=== PATIENT | female | born 1970 | race African-American/Black ===

== ENCOUNTER 2021-04-05 10:52 | Outpatient (CLI) | payer OTHER, SELFPAY ==
--- NOTE | ~2021-04-05 | MM_ITS ---
EXAMINATION: MM screening adalberto BI w steve HISTORY: Screening TECHNIQUE: Craniocaudal and mediolateral oblique 3-D tomosynthesis images were obtained and synthetic 2-D images were generated. CAD analysis was submitted and interpreted. COMPARISON: No prior mammogram is available for comparison at this institution. BREAST PARENCHYMAL COMPOSITION: There are scattered areas of fibroglandular density. FINDINGS: There is a focal asymmetry in the upper central aspect of the right breast, middle third. T here is no mammographic evidence for malignancy in the left breast. IMPRESSION: 1. Focal right breast asymmetry. 2. Additional mammographic views and possible breast ultrasound are recommended. BI-RADS Category 0: Incomplete: Needs additional imaging evaluation. Reviewed, dictated and finalized at location A. IMPRESSION: 1. Focal right breast asymmetry. 2. Additional mammographic views and possible breast ultrasound are recommended . BI-RADS Category 0: Incomplete: Needs additional imaging evaluation.
== END 2021-04-05 10:53 | disposition home or self-care (01) ==
PROVIDERS: PCP Nurse Practitioner Family; Visit Provider Obstetrics & Gynecology
DX: Z12.31 Encounter for screening mammogram for malignant neoplasm of breast (principal); R92.8 Other abnormal and inconclusive findings on diagnostic imaging of breast
CPT/HCPCS: 77063; 77067

== ENCOUNTER → 2021-05-07 09:22 | Outpatient (CLI) | payer OTHER, SELFPAY ==
--- NOTE | ~2021-05-07 | MMUS_ITS ---
EXAMINATION: MM diagnostic adalberto RT w steve, US breast RT limited HISTORY: Focal right breast asymmetry in upper central aspect of right breast, middle third, reported on 04/05/2021 screening mammogram TECHNIQUE: Additional 3-D tomosynthesis images of the right breast were performed and synthetic 2-D i mages were generated. Rolled medial and rolled lateral craniocaudal views of right breast. CAD analys is was submitted and interpreted. High resolution targeted right breast ultrasound was performed. COMPARISON: 04/05/2021 bilateral screening mammogram FINDINGS: MAMMOGRAPHIC FINDINGS: There is an irregular approximately 7 mm opacity in the central right breast, slightly lateral to the mid sagittal plane, approximately 8 cm deep to the nipple on craniocaudal view. ULTRASOUND: 7:00 6 cm from nipple: There is a hypoechoic mildly irregular approximately 3.3 x 6.7 x 4.7 mm lesion with some posterior shadowing, corresponding approximately to the area of the mammographic abnormali ty. Ultrasound-guided biopsy is recommended. IMPRESSION: 1. Hypoechoic mildly irregular solid lesion at 7:00 6 cm from nipple, with some posterior shadowing 2. Ultrasound-guided biopsy is recommended. BI-RADS category 4, suspicious findings. Dr. Walker telephoned the report and ultrasound-guided biopsy recommendation on 05/07/2021 at [address] Pozo's voicemail. Reviewed, dictated and finalized at location A. [employer]PER IMPRESSION: 1. Hypoechoic mildly irregular solid lesion at 7:00 6 cm from nipple, with some posterior shadowing 2. Ultrasound-guided biopsy is recommended. BI-RADS category 4, suspicious findings. Dr. Walker telephoned the report and ultrasound-guided biopsy recommendation on 07/07/[address] Pzoo's voicemail. IMPRESSION: 1. Hypoechoic mildly irregular solid lesion at 7:00 6 cm from nipple, with some posterior shadowing 2. Ultrasound-guided biopsy is recommended. BI-RADS category 4, suspicious findings. Dr. Walker telephoned the report and ultrasound-guided biopsy recommendation on 07/07/[address] Pozo's voicemail.
== END ==
PROVIDERS: PCP Nurse Practitioner Family; Visit Provider Obstetrics & Gynecology
DX: R92.8 Other abnormal and inconclusive findings on diagnostic imaging of breast (principal)
CPT/HCPCS: 76642; 77061; 77065; G0279

== ENCOUNTER 2023-01-05 12:19 | Observation (INO) | payer BC, SELFPAY ==
[2023-01-05] VITALS (25 sets, daily range): BP systolic 165–230; BP diastolic 78–156; PULSE 52–89; RESP 14–28; TEMP 36.2–36.5; O2SAT 93–100; BMI 43.2
--- NOTE | ~2023-01-05 | XR_ITS ---
EXAMINATION: XR chest 2V DATE: 01/05/2023 14:14 INDICATION: Right shoulder and back pain. Fall. TECHNIQUE: Frontal and lateral views of the chest were obtained. COMPARISON: None. FINDINGS: There is no pneumonia, pleural effusion, or pneumothorax. The heart size is normal. IMPRESSION: 1. No acute cardiopulmonary disease. Reviewed, dictated and finalized at location E.
--- NOTE | ~2023-01-05 | XR_ITS ---
EXAMINATION: XR shoulder RT min 2V DATE: 01/05/2023 14:14 INDICATION: Right shoulder pain. TECHNIQUE: 4 views of right shoulder were obtained. COMPARISON: None. FINDINGS: Bone alignment is normal. No fracture. There is mild osteoarthritis of acromioclavicular rashi int and glenohumeral joint. IMPRESSION: 1. Mild polyarticular osteoarthritis. Reviewed, dictated and finalized at location E.
--- NOTE | 2023-01-05 13:51 | ED.FALL ---
HPI - Fall General Chief Complaint: Fall Stated Complaint: FALL BACK PAIN Time Seen by Provider: 01/05/23 13:13 History of Present Illness HPI Narrative: 52-year-old female presented the emergency department for evaluation for right shoulder and back pain after having a ground-level fall. Patient reports on Monday she was in the kitchen cooking when she stepped backwards and tripped over a new dog. Patient states she attempted to catch herself but missed to the table ended up landing on her right shoulder. Patient denies striking her head denies loss of consciousness. Patient states she was having some increased right-sided pain over the last few days and has been taking ibuprofen for pain control. Patient reports that she does still have some decreased range of motion of the right shoulder. Patient has been taking ibuprofen and Flexeril for pain control without significant improvement. Patient denies any associated abdominal or hip pain on the right side, although she did have some pain after the fall she states that pain has resolved. Related Data Home Medications Medication Instructions Recorded Confirmed levothyroxine 25 mcg capsule 25 mcg PO DAILY 03/18/21 01/05/23 cyclobenzaprine 10 mg tablet 10 mg PO TID 01/05/23 01/05/23 hydrocodone 5 mg-acetaminophen 325 1 tablet PO Q12H PRN Pain 01/05/23 01/05/23 mg tablet losartan 25 mg tablet 25 mg PO HS 01/05/23 01/05/23 Allergies Allergy/AdvReac Type Severity Reaction Status Date / Time No Known Allergies Allergy Verified 01/05/23 12:20 Review of Systems Review of Systems: All systems reviewed & are unremarkable except as noted in HPI and below PMFSH Past Medical History Medical History Hypertension Migraine Thyroid disease Surgical History Surgical History H/O tubal ligation History of section History of cryosurgery Family History Family History Father Diabetes mellitus Heart disease Mother Hypertension Heart disease Social History Social History Smoking status: Never smoker Second hand tobacco smoke exposure: No Alcohol intake: current Drinks per week: 1 Substance use type: does not use Lack of Transportation: No Lack of Food: Never True Current Housing: I Have Housing Concerned About Future Housing: No Difficulty Paying Gas/Electric Bills: No Difficulty Paying for Meds: No Currently Unemployed: No Education: Trade/Vocational Certificate Difficulty w/ Childcare or Family Care: No Spiritual care concerns: No Exam Narrative: APPEARANCE: Well appearing, no pain, no distress, well-nourished. HEAD: normocephalic, atraumatic. EYES: PERRLA/EOMI, conjunctivae clear. NOSE: Normal no drainage NECK: Supple. No adenopathy, no masses. RESPIRATORY: Airway patent, respirations nonlabored. Clear to auscultation bilaterally, no rales, rhonchi, wheezing. CARDIOVASCULAR: Regular rate and rhythm without murmurs rubs or gallops. ABDOMINAL: Soft, nontender, nondistended, normal bowel sounds MUSCULOSKELETAL: Tenderness to right scapula and to right shoulder. Some decreased range of motion of the right shoulder but no deformity or evidence of dislocation. NEURO: Alert. Cranial nerves II through XII intact. Grossly intact SKIN: Warm, dry. Normal Color Course Course Emergency Course: 52-year-old female initially presented to the ED for evaluation of right shoulder pain. Patient was profoundly hypertensive during her entire stay in the emergency department. Patient states she does have history of hypertension and takes 20 mg of p.o. losartan. Patient reports she takes her medication at nighttime. Patient was treated with her p.o. dose of losartan but had no improvement in her blood pressure. Patient
[2023-01-05] MEDS: KETOROLAC 30 MG/ML VIAL (*BKC) IM (13:56)
[2023-01-05] MEDS: CYCLOBENZAPRINE HCL 10 MG TABLET PO (13:56)
[2023-01-05] MEDS: LOSARTAN POTASSIUM 25 MG TABLET PO (15:53)
[2023-01-05] MEDS: hydrALAZINE HCL 20 MG/ML VIAL 10 MG IV PUSH (17:28)
[2023-01-05] MEDS: METOPROLOL TARTRATE INJ 5 MG/5 ML VIAL IV PUSH (18:09)
--- NOTE | 2023-01-05 19:33 | PC.NURSE ---
Pt went to the bathroom, before pt aware of needing to give a urine sample. Shauna and RN informed pt of sample needed.
--- NOTE | 2023-01-05 19:57 | PC.NURSE ---
Called russet repairer for help on labs. Talked to Lydia about it and she should be here to help shortly.
[2023-01-05 20:05] LABS: Basophils Absolute Auto 0.1 K/mm3 (0.0-0.1); Basophils Percent Auto 0.9 % (0.2-1.2); Eosinophils Absolute Auto 0.1 K/mm3 (0-0.3); Eosinophils Percent Auto 1.9 % (0-4.4); Hematocrit 37.8 % (37.0-47.0); Hemoglobin 12.2 g/dL (12.0-15.0); Immature Granulocyte Absolute 0.02 K/mm3 (0.00-0.031); Immature Granulocyte Percent A 0.3 % (0-0.5); Lymphocytes Absolute Auto 3.04 K/mm3 (0.9-3.2); Lymphocytes Percent Auto 52.9 % (18.3-44.2); Mean Corpuscular HGB Conc 32.3 g/dl (32-36); Mean Corpuscular Hemoglobin 26.9 pg (26-34); Mean Corpuscular Volume 83.4 fl (80-100); Mean Platelet Volume 8.5 fl (7.4-10.4); Monocytes Absolute Auto 0.5 K/mm3 (0.1-0.6); Platelet Count Result 362 k/mm3 (150-375); Red Blood Count 4.53 M/mm3 (4.2-5.4); Red Cell Distribution Width 13.6 % (11.5-14.5); White Blood Count 5.8 K/mm3 (4.5-10.0)
--- NOTE | 2023-01-05 20:08 | PM.IMHP ---
H&P: HPI History of Present Illness Date/Time: 01/05/23 20:08 Chief Complaint: Fall Narrative: This is a 52-year-old female with past medical history significant for hypertension, hypothyroidism, migraine headache. Patient comes to the emergency room after having a mechanical fall when in the emergency room she was noted to have a blood pressure systolic of 200's and was decided to keep the patient for observation. Patient's has been having headaches and blurry vision, denies any chest pain, palpitations, shortness of breath, lightheadedness, vertigo. Patient was given multiple drugs with attempt to bring her blood pressure further down systolic came down to 180. Preliminary workup was low yield. Review of Systems Review of Systems: Fall, blurry vision, headaches. Constitutional: Constitutional: Denies chills, Denies fatigue, Denies fever(s), Denies frequent falls, Reports headache(s), Denies malaise and Denies weakness Eyes: Eyes: Reports blurry vision ENT: Denies vertigo and Denies dizziness Cardiovascular: Cardiovascular: Denies chest pain, Denies leg edema, Denies lightheadedness, Denies radiating jaw, neck or arm pain and Denies palpitations Respiratory: Respiratory: Denies chest congestion, Denies cough, Denies excessive phlegm production and Denies dyspnea Gastrointestinal: Gastrointestinal: Denies abdominal pain, Denies dyspepsia, Denies heartburn, Denies diarrhea, Denies nausea and Denies vomiting Genitourinary: Genitourinary: Denies dysuria Musculoskeletal: Musculoskeletal: Reports arthralgias (Shoulder) Integumentary/Breasts: Skin/Breast: Denies rash Neurologic: Denies focal weakness and Denies Sensory deficit (Neuro) Psychiatric: Psychiatric: Reports no additional psychiatric complaints and Reports as per HPI Endocrine: Endocrine: Denies cold intolerance, Denies flushing, Denies heat intolerance, Denies polyphagia, Denies polydipsia and Denies palpitations Hematologic/Lymphatic: Hematologic/Lymphatic: Reports no additional hematologic/lymphatic complaints and Reports as per HPI Allergic/Immunologic: Allergic/Immunologic: Reports no additional allergic/immunologic complaints and Reports as per HPI PMFSH Past Medical History Medical History Hypertension Migraine Thyroid disease Surgical History Surgical History H/O tubal ligation History of section History of cryosurgery Family History Family History Father Diabetes mellitus Heart disease Mother Hypertension Heart disease Social History Social History Smoking status: Never smoker Second hand tobacco smoke exposure: No Alcohol intake: current Drinks per week: 1 Substance use type: does not use Lack of Transportation: No Lack of Food: Never True Current Housing: I Have Housing Concerned About Future Housing: No Difficulty Paying Gas/Electric Bills: No Difficulty Paying for Meds: No Currently Unemployed: No Education: Trade/Vocational Certificate Difficulty w/ Childcare or Family Care: No Spiritual care concerns: No Meds Home Medications and Allergies Home Medications Medication Instructions Recorded Confirmed Type levothyroxine 25 mcg capsule 25 mcg PO DAILY 03/18/21 01/05/23 History cyclobenzaprine 10 mg tablet 10 mg PO TID 01/05/23 01/05/23 History hydrocodone 5 mg-acetaminophen 325 1 tablet PO Q12H PRN Pain 01/05/23 01/05/23 History mg tablet losartan 25 mg tablet 25 mg PO HS 01/05/23 01/05/23 History Allergies Allergy/AdvReac Type Severity Reaction Status Date / Time No Known Allergies Allergy Verified 01/05/23 12:20 Vital Signs Vital Signs - 24 hr 01/05/23 12:24 01/05/23 12:33 01/05/23 14:29 Temperature 97.2 F L 97.4 F L Pulse Rate 72
[2023-01-05 20:15] LABS: Alanine Aminotransferase 25 U/L (6-35); Albumin Level 4.4 g/dL (3.5-5.1); Alkaline Phosphatase 80 U/L (38-126); Anion Gap 8 mmol/L (8-16); Aspartate Amino Transferase 29 U/L (14-36); Bilirubin,Total 0.4 mg/dL (0.2-1.3); Blood Urea Nitrogen 11 mg/dL (7-17); Calcium 9.6 mg/dL (8.4-10.2); Carbon Dioxide 28 mmol/L (22-30); Chloride 101 mmol/L (98-107); Estimated CRCL calculation 69 ml/min; Estimated Glomerular Filt Rate > 60; Glucose 152 mg/dL (65-110); Potassium 3.1 mmol/L (3.4-5.0); Sodium 137 mmol/L (137-145)
[2023-01-05 20:16] LABS: Partial Thromboplastin Time 23.5 SECONDS (22.3-36.8); Prothrombin Time 13.7 Seconds (11.1-14.7)
--- NOTE | 2023-01-05 21:22 | PC.NURSE ---
This RN attempted to call report. Diana from IMU stated nurse was in with a confused pt and would call this RN back
--- NOTE | 2023-01-05 21:49 | ADMGEN ---
This patient, Bhakti Moe, was admitted to IMU Room 200-01 at 2145. Patient/family oriented to hospital policies and general routines including ID bracelet, bed and alarms, visiting hours, pain management, procedures, bathroom and other care routines, personal items, smoking policy, room service/diet, and visiting hours. Information on how to activate the Rapid Response Team has been discussed. Patient/Family are encouraged to report perceived risks to care and to ask questions if they do not understand what they are told or what they should do.
[2023-01-06] VITALS (10 sets, daily range): BP systolic 151–173; BP diastolic 78–90; PULSE 62–102; RESP 16–19; TEMP 36–36.5; O2SAT 99–100
[2023-01-06 09:09] LABS: Basophils Percent Auto 0.4 % (0.2-1.2); Eosinophils Absolute Auto 0.1 K/mm3 (0-0.3); Eosinophils Percent Auto 1.4 % (0-4.4); Hematocrit 39.1 % (37.0-47.0); Hemoglobin 12.6 g/dL (12.0-15.0); Immature Granulocyte Absolute 0.01 K/mm3 (0.00-0.031); Immature Granulocyte Percent A 0.2 % (0-0.5); Immature Platelet Fraction Pct 1.7 % (0.9-11.2); Lymphocytes Absolute Auto 1.53 K/mm3 (0.9-3.2); Lymphocytes Percent Auto 29.7 % (18.3-44.2); Mean Corpuscular HGB Conc 32.2 g/dl (32-36); Mean Corpuscular Hemoglobin 27.3 pg (26-34); Mean Corpuscular Volume 84.8 fl (80-100); Mean Platelet Volume 9.5 fl (7.4-10.4); Monocytes Absolute Auto 0.3 K/mm3 (0.1-0.6); Neutrophils Absolute Auto 3.2 K/mm3 (1.3-6.7); Neutrophils Percent Auto 62.3 % (45.5-73.1); Platelet Count Result 407 k/mm3 (150-375); Red Blood Count 4.61 M/mm3 (4.2-5.4); White Blood Count 5.2 K/mm3 (4.5-10.0)
[2023-01-06] MEDS: ACETAMINOPHEN 500 MG TABLET PO (09:15)
[2023-01-06] MEDS: CYCLOBENZAPRINE HCL 10 MG TABLET PO ×2 (09:15→12:24)
[2023-01-06] MEDS: LEVOTHYROXINE SODIUM 25 MCG TABLET PO (09:15)
--- NOTE | 2023-01-06 09:40 | PM.IMPN ---
Progress Note: A&P Assessment and Plan (1) Hypertensive urgency: Code(s): I16.0 - Hypertensive urgency Status: Acute Assessment and Plan: Continue to monitor blood pressure, goal of 160/100 to prevent relative hypoperfusion Restarted home losartan Hydralazine as needed (2) Fall: Code(s): W19.XXXA - Unspecified fall, initial encounter Status: Acute Assessment and Plan: Ground level mechanical fall No injuries (3) Morbid obesity with BMI of 40.0-44.9, adult: Code(s): E66.01 - Morbid (severe) obesity due to excess calories; Z68.41 - Body mass index [BMI] 40.0-44.9, adult Status: Acute Assessment and Plan: Lifestyle and diet modifications Plan DVT prophylaxis with SCDs GI prophylaxis not indicated Code status full code Subjective Date/time seen: 01/06/23 09:40 Interval history: 52-year-old female with history of morbid obesity, hypothyroidism and migraines presenting after a ground level mechanical fall and currently being treated for hypertensive urgency. No overnight events noted. No chest pain or shortness of breath. No nausea, vomiting or diarrhea. No fevers or chills. Review of Systems Review of Systems: 12 point review of systems was assessed and was negative except as noted in the HPI Exam Narrative: General: No acute distress, alert and oriented per baseline HEENT: Atraumatic, normocephalic, mucous membranes moist CV: Regular rate and rhythm, S1, S2 Lungs: Clear to auscultation bilaterally, no rales or crackles noted, no wheezes, good air entry Abdomen: Soft, nontender, nondistended Extremities: Normal to inspection Skin: No rashes noted, no lesions or wounds seen Psych: Euthymic, normal affect Objective Data Vital Signs Vital Signs: Vital Signs - 24 hr 01/05/23 12:24 01/05/23 12:33 01/05/23 14:29 Temperature 97.2 F L 97.4 F L Pulse Rate 72 72 64 Respiratory Rate 16 18 20 Blood Pressure 221/125 H 193/131 H 179/83 H Pulse Oximetry 100 100 100 Oxygen Delivery Room Air 01/05/23 15:43 01/05/23 12:46 01/05/23 13:01 Temperature Pulse Rate 78 72 Respiratory Rate 16 27 H Blood Pressure 230/100 H 193/131 H 198/118 H Pulse Oximetry 100 100 Oxygen Delivery 01/05/23 14:28 01/05/23 14:31 01/05/23 14:46 Temperature Pulse Rate 67 62 78 Respiratory Rate 14 20 18 Blood Pressure 179/83 H 197/93 H 186/95 H Pulse Oximetry 93 100 100 Oxygen Delivery 01/05/23 15:17 01/05/23 16:45 01/05/23 16:46 Temperature Pulse Rate 58 L 54 L 52 L Respiratory Rate 26 H 15 18 Blood Pressure 195/91 H 211/99 H Pulse Oximetry Oxygen Delivery 01/05/23 18:09 01/05/23 17:29 01/05/23 17:31 Temperature Pulse Rate 70 59 L 55 L Respiratory Rate 20 19 Blood Pressure 224/138 H 213/119 H Pulse Oximetry Oxygen Delivery 01/05/23 17:41 01/05/23 17:51 01/05/23 18:21 Temperature Pulse Rate 56 L 61 85 Respiratory Rate 20 17 26 H Blood Pressure 218/123 H 196/156 H 165/90 H Pulse Oximetry Oxygen Delivery 01/05/23 18:31 01/05/23 18:41 01/05/23 19:00 Temperature Pulse Rate 83 89 81 Respiratory Rate 22 H 28 H 25 H Blood Pressure 169/78 H 194/95 H 184/97 H Pulse Oximetry Oxygen Delivery 01/05/23 19:02 01/05/23 19:11 01/05/23 21:45 Temperature 97.7 F Pulse Rate 84 81 66 Respiratory Rate 18 20 20 Blood Pressure 185/108 H 170/80 H 210/103 H Pulse Oximetry 98 Oxygen Delivery 01/05/23 22:00 01/06/23 00:09 01/06/23 00:00 Temperature 97.7 F Pulse Rate 80 85 Respiratory Rate 19 Blood Pressure 154/78 H Pulse Oximetry 99 100 Oxygen Delivery Room Air 01/06/23 00:00 01/06/23 02:00 01/06/23 05:06 Temperature 97.7 F Pulse Rate 93 78 67 Respiratory Rate 18 Blood Pressure 151/89 H Pulse Oximetry 99 Oxygen Delivery 01/06/23 04:00 01/06/23 04:00 01/06/23 06:00 Temperature Pulse Rate 102 H 82 Respiratory Rate Blood Pr
[2023-01-06 09:53] LABS: Alanine Aminotransferase 25 U/L (6-35); Albumin Level 4.4 g/dL (3.5-5.1); Alkaline Phosphatase 78 U/L (38-126); Anion Gap 7 mmol/L (8-16); Aspartate Amino Transferase 31 U/L (14-36); Bilirubin,Total 0.4 mg/dL (0.2-1.3); Blood Urea Nitrogen 14 mg/dL (7-17); Calcium 9.5 mg/dL (8.4-10.2); Carbon Dioxide 31 mmol/L (22-30); Chloride 101 mmol/L (98-107); Estimated CRCL calculation 66 ml/min; Estimated Glomerular Filt Rate > 60; Glucose 113 mg/dL (65-110); Potassium 3.8 mmol/L (3.4-5.0); Sodium 139 mmol/L (137-145)
[2023-01-06] MEDS: POTASSIUM CHLORIDE INJ 40 MEQ in SODIUM CHLORIDE 0.9% IV 500 ML 130 MEQ IVPB (10:42)
[2023-01-06] MEDS: POTASSIUM CHLORIDE 20 MEQ ER TABLET 40 MEQ PO ×2 (10:42→14:52)
[2023-01-06 12:21] LABS: Cholesterol 245 mg/dL (0-200); HDL Direct 44 mg/dL; Triglycerides 92 mg/dL (<150)
[2023-01-06 12:29] LABS: Hemoglobin A1C 6.2 % (<5.7)
[2023-01-06 12:32] LABS: LDL Cholesterol Direct 145 mg/dL
--- NOTE | 2023-01-06 14:35 | PM.DS ---
DS: Admitting Diagnosis Discharge Date 01/06/23 Admitting Diagnosis s/p fall DS: Discharge Diagnosis Discharge Diagnosis (1) Hypertensive urgency: Code(s): I16.0 - Hypertensive urgency Status: Acute Assessment and Plan: Continue to monitor blood pressure, goal of 160/100 to prevent relative hypoperfusion Restarted home losartan Hydralazine as needed (2) Fall: Code(s): W19.XXXA - Unspecified fall, initial encounter Status: Acute Assessment and Plan: Ground level mechanical fall No injuries (3) Morbid obesity with BMI of 40.0-44.9, adult: Code(s): E66.01 - Morbid (severe) obesity due to excess calories; Z68.41 - Body mass index [BMI] 40.0-44.9, adult Status: Acute Assessment and Plan: Lifestyle and diet modifications check a1c, lipid panel (4) Hypothyroidism: Code(s): E03.9 - Hypothyroidism, unspecified Status: Acute Assessment and Plan: check tsh, wnl, cont home dose levothyroxine Plan DVT prophylaxis with SCDs GI prophylaxis not indicated Code status full code DS: Summary Hospital Course Hospital Course: 52-year-old female presenting with mechanical fall found to have hypertensive urgency. Patient states her blood pressure is consistently in the 150s over 90s. She states she sees her family doctor every 6 months. While here, A1c was checked due to of elevated fasting blood glucose and found to be 6.2 making her a new onset diabetic. Lipid panel also checked, goal LDL will be less than 70. Blood pressure goal would be less than 110/70 if possible to protect her kidneys. This will need to be done over a period of time to prevent relative hypoperfusion. Her home blood pressure medications will be increased slowly, she will need close outpatient follow-up to manage her diabetes as well as blood pressure. She was also started on low-dose metformin, this will need to be increased as an outpatient. Please see above and med rec for details. Time Spent with Patient Time attestation: Total time spent providing and/or coordinating discharge services: Exam Narrative: General: No acute distress, alert and oriented per baseline HEENT: Atraumatic, normocephalic, mucous membranes moist CV: Regular rate and rhythm, S1, S2 Lungs: Clear to auscultation bilaterally, no rales or crackles noted, no wheezes, good air entry Abdomen: Soft, nontender, nondistended Extremities: Normal to inspection Skin: No rashes noted, no lesions or wounds seen Psych: Euthymic, normal affect DS: Data Data Completed and Pending Labs on day of discharge: Labs from last 24 hours 01/06/23 01/06/23 01/05/23 09:33 09:01 19:58 WBC 5.2 5.8 RBC 4.61 4.53 Hgb 12.6 12.2 Hct 39.1 37.8 MCV 84.8 83.4 MCH 27.3 26.9 MCHC 32.2 32.3 RDW 14.0 13.6 Plt Count 407 H 362 MPV 9.5 8.5 Immature Gran % (Auto) 0.2 0.3 Neut % (Auto) 62.3 35.0 L Lymph % (Auto) 29.7 52.9 H Gregory % (Auto) 6.0 9.0 H Eos % (Auto) 1.4 1.9 Baso % (Auto) 0.4 0.9 Lymph # (Auto) 1.53 3.04 Gregory # (Auto) 0.3 0.5 Eos # (Auto) 0.1 0.1 Baso # (Auto) 0.0 0.1 Abs Immat Gran (auto) 0.01 0.02 Absolute Neuts (auto) 3.2 2.0 Absolute Nucleated RBC 0.0 0.0 Nucleated RBC % 0.0 0.0 % Immature Plt Fraction 1.7 PT 13.7 INR 1.0 APTT 23.5 Sodium 139 137 Potassium 3.8 3.1 L Chloride 101 101 Carbon Dioxide 31 H 28 Anion Gap 7 L 8 BUN 14 11 Creatinine 1.00 1.00 Estim Creat Clear Calc 66 69 Estimated GFR > 60 > 60 Glucose 113 H 152 H Hemoglobin A1c 6.2 H Calcium 9.5 9.6 Total Bilirubin 0.4 0.4 AST 31 29 ALT 25 25 Alkaline Phosphatase 78 80 Total Protein 9.0 H 9.0 H Albumin 4.4 4.4 Triglycerides 92 Cholesterol 245 H LDL Cholesterol Direct 145 HDL Direct 44 TSH 3.120 Discharge Plan Discharge Attending physician on discharge: Summer Harris
== END 2023-01-06 15:15 | disposition home or self-care (01) ==
LOC: ANHED 19:55 → ANHIMU 23:09
PROVIDERS: Admitting Provider Internal Medicine; Emergency Provider Emergency Medicine; PCP Nurse Practitioner Family; Visit Provider Student in an Organized Health Care Education/Training Program
DX: I16.0 Hypertensive urgency (principal); S46.911A Strain of unspecified muscle, fascia and tendon at shoulder and upper arm level, right arm, initial encounter; M54.9 Dorsalgia, unspecified; W01.0XXA Fall on same level from slipping, tripping and stumbling without subsequent striking against object, initial encounter; Y93.G3 Activity, cooking and baking; Y92.000 Kitchen of unspecified non-institutional (private) residence as the place of occurrence of the external cause; E66.01 Morbid (severe) obesity due to excess calories; E03.9 Hypothyroidism, unspecified; Z68.41 Body mass index [BMI] 40.0-44.9, adult; H53.8 Other visual disturbances; G43.909 Migraine, unspecified, not intractable, without status migrainosus; M15.9 Polyosteoarthritis, unspecified; Z79.891 Long term (current) use of opiate analgesic; Z79.899 Other long term (current) drug therapy; F10.90 Alcohol use, unspecified, uncomplicated; Z82.49 Family history of ischemic heart disease and other diseases of the circulatory system
CPT/HCPCS: 36415; 71046; 73030; 80053; 80061; 83036; 84443; 85025; 85055; 85610; 85730; 96372; 96374; 96375; 99285; A9270; G0378; J0360; J1885; J3480; J7040

== ENCOUNTER 2023-03-28 15:00 | Outpatient (RCR) | payer BC, SELFPAY ==
[2023-01-31 14:25] VITALS: BMI 44.1
[2023-01-31 14:27] VITALS: BMI 44.1
[2023-03-28 15:22] VITALS: BMI 44.1
== END 2023-04-17 09:51 | disposition home or self-care (01) ==
LOC: ANHDMC 15:00
PROVIDERS: PCP Nurse Practitioner Family; Visit Provider Nurse Practitioner Family
DX: E11.9 Type 2 diabetes mellitus without complications (principal); E66.01 Morbid (severe) obesity due to excess calories; Z68.41 Body mass index [BMI] 40.0-44.9, adult; Z71.3 Dietary counseling and surveillance
CPT/HCPCS: 97802; 97803

== ENCOUNTER 2023-05-10 12:06 | Outpatient (CLI) | payer BC, SELFPAY ==
[2023-05-10 13:38] LABS: Hepatitis B Surface Antigen Negative (Negative)
[2023-05-10 13:41] LABS: HIV 1/2 Ab P24 Ag Result Negative (Negative)
[2023-05-10 13:56] LABS: Hepatitis C Virus Antibody Negative (Negative)
[2023-05-10 14:39] LABS: Rapid Plasma Reagin Non-Reactive (NonReactive)
== END 2023-05-10 12:07 | disposition home or self-care (01) ==
LOC: ANHLAB 12:08
PROVIDERS: PCP Nurse Practitioner Family; Visit Provider Obstetrics & Gynecology
DX: Z20.2 Contact with and (suspected) exposure to infections with a predominantly sexual mode of transmission (principal)
CPT/HCPCS: 36415; 86592; 86703; 86803; 87340; G0432